=== PATIENT | female | born 1950 ===

== ENCOUNTER 2017-12-23 05:30 | Day surgery (SDC) | payer OTHER ==
[~2017-12-23 05:30] MED LIST: CYMBALTA60 MG PO; EFFEXOR XR75 MG PO; FARYDAK10 MG PO; FORTAMET1000 MG PO; GLYBURIDE5 MG PO; LEVO-T50 MCG PO; LIPITOR20 MG PO; NAPR500T14 PO; NEURONTIN300 MG PO; TEMAZEPAM15 MG PO; VALSARTAN-HCTZ1 EAC3 PO; ZOLPIDEM TARTRAT5 MG PO
== END 2017-12-23 10:05 | disposition home or self-care (01) ==
LOC: CIR.AMB 05:30
DX: M67.842 Other specified disorders of synovium, left hand (principal)